=== PATIENT | male | born 1990 | race African-American/Black ===

== ENCOUNTER 2020-06-28 23:09 | Emergency (ER) | payer SELFPAY ==
[2020-06-29 00:47] LABS: Absolute Lymphocytes (CBC) 1.8 K/uL (0.7-4.9); Basophils % 0.7 % (0-1.3); Hematocrit 41.5 % (39.6-49.0); Lymphocytes % 38.1 % (15.3-44.8); MPV 9.1 fL (7.6-11.3); RBC Red Blood Cell Count 4.63 M/uL (4.33-5.43)
[2020-06-29] MEDS ORDERED: DIAZEPAM 5 MG TABLET ONE (00:47)
[2020-06-29] MEDS ORDERED: KETOROLAC 30 MG/ML INJ ONE (00:48)
[2020-06-29] MEDS ORDERED: MORPHINE 4 MG/ML SYR ONE (00:48)
[2020-06-29] MEDS ORDERED: ONDANSETRON 4 MG/2 ML VIAL ONE (00:48)
[2020-06-29] MEDS ORDERED: dexAMETHasone 10 MG/ML VIAL ONE (00:48)
[2020-06-29] MEDS ORDERED: NA CHLORIDE 0.9% 1,000 ML ONE (00:49)
[2020-06-29 01:05] LABS: Albumin 3.5 g/dL (3.4-5.0); Bilirubin Total 0.4 mg/dL (0.2-1.0); Protein, Total 7.6 g/dL (6.4-8.2)
--- NOTE | 2020-06-29 01:57 | ER ---
Nurse's Notes [facility] Name: Aris Johnson Age: 30 yrs Sex: Male : 1990 Arrival Date: 06/28/2020 Time: 23:42 Bed 8 Private MD: Diagnosis: Strain of muscle, fascia and tendon at neck level Presentation: 06/29 00:00 Chief complaint: Patient states: unsure what exactly he was doing when the pain first dm5 began. He lifts a lot at his job. Pain has been going on for about 4 days in his neck and has been getting worse. Pt also complains of pain in both knees that has been going on for over a year. He states that the steroid short he received less than a year ago has worn off. Coronavirus screen: Client denies travel out of the [place] in the last 14 days. At this time, the client does not indicate any symptoms associated with coronavirus-19. Ebola Screen: Patient negative for fever greater than or equal to 101.5 degrees Fahrenheit, and additional compatible Ebola Virus Disease symptoms Patient denies exposure to infectious person. Patient denies travel to an Ebola-affected area in the 21 days before illness onset. No symptoms or risks identified at this time. Initial Sepsis Screen: Does the patient meet any 2 criteria? No. Patient's initial sepsis screen is negative. Does the patient have a suspected source of infection? No. Patient's initial sepsis screen is negative. Risk Assessment: Do you want to hurt yourself or someone else? Patient reports no desire to harm self or others. Onset of symptoms was June 24, 2020. 00:00 Method Of Arrival: Wheelchair dm5 00:00 Acuity: KHUSHI 4 dm5 Triage Assessment: 00:03 General: Appears in no apparent distress. Behavior is calm, cooperative. Pain: dm5 Complains of pain in right knee, left knee and neck Pain currently is 10 out of 10 on a pain scale. EENT: No deficits noted. No signs and/or symptoms were reported regarding the EENT system. Neuro: No deficits noted. Cardiovascular: No deficits noted. Respiratory: No deficits noted. GI: No deficits noted. No signs and/or symptoms were reported involving the gastrointestinal system. : No deficits noted. No signs and/or symptoms were reported regarding the genitourinary system. Derm: Skin is pink, warm \T\ dry. Musculoskeletal: Reports pain in right knee, left knee and neck. Historical: - Allergies: 00:03 No Known Allergies; dm5 - Home Meds: 00:03 Keppra 500 mg Oral tab [Active]; dm5 - PMHx: 00:03 Seizures; dm5 - PSHx: 00:03 None; dm5 - Family history:: not pertinent. Screenin:00 Abuse screen: Denies threats or abuse. Nutritional screening: No deficits noted. jb4 Tuberculosis screening: No symptoms or risk factors identified. Fall Risk None identified. Assessment: 00:00 General: Appears in no apparent distress. uncomfortable, Behavior is calm, cooperative, jb4 appropriate for age. Pain: Complains of pain in right arm, left arm, right leg, left leg and neck Pain does not radiate. Pain currently is 10 out of 10 on a pain scale. Quality of pain is described as throbbing. Neuro: Level of Consciousness is awake, alert, obeys commands, Oriented to person, place, time, situation, Line Maintainer are equal bilaterally Moves all extremities. Full function Speech is normal, Facial symmetry appears normal, Pupils are PERRLA. Cardiovascular: Patient's skin is warm and dry. Respiratory: Airway is patent Respiratory effort is even, unlabored, Respiratory pattern is regular, symmetrical. GI: No signs and/or symptoms were reported involving the gastrointestinal system. : No signs and/or symptoms were reported regarding the genitourinary system. EENT: No signs and/or symptoms were reported regarding the EENT system. Derm: Skin is intact, Skin is pink, warm \T\ dry. Musculoskeletal: Circulation, motion, and sensation intact. Range of motion: intact in all extremities. 01:00 Reassessment: Patient appears in no apparent distress at this time. Patient and/or jb4 family updated on plan of care and expected duration. Pain level reassessed. Patient is alert, oriented x 3, equal unlabored respirations, skin warm/dry/pink. 02:36 Reassessment: Patient appears in no apparent distress at this time. Patient and/or jb4 family updated on plan of care and expected duration. Pain level reassessed. Patient is alert, oriented x 3, equal unlabored respirations, skin warm/dry/pink. Vital Signs: 00:00 Weight 98.88 kg; Height 5 ft. 7 in. (170.18 cm); Pain 10/10; dm5 00:45 BP 128 / 75; Pulse 72; Resp 16; Pulse Ox 100% on R/A; Pain 10/10; jb4 02:14 BP 118 / 63; Pulse 58; Resp 18; Temp 97.8(O); Pulse Ox 99% on R/A; oe 00:00 Body Mass Index 34.14 (98.88 kg, 170.18 cm) dm5 ED Course: 06/28 23:42 Patient arrived in ED. cf2 23:57 Dorian Albert MD is Attending Physician. namrata 06/29 00:00 Patient has correct armband on for positive identification. Placed in gown. Bed in low jb4 position. Call light in reach. Side rails up X 1. Pulse ox on. NIBP on. 00:02 Triage completed. dm5 00:03 Arm band placed on Patient placed in an exam room, on a stretcher. dm5 00:27 Jose Antonio Kraus, NAVNEET is Primary Nurse. jb4 00:30 Inserted saline lock: 20 gauge in left antecubital area, using aseptic technique. jb4 01:34 CT Head C Spine In Process Unspecified. EDMS 01:57 Juan Peralta MD is Referral Physician. [facility] 02:36 No provider procedures requiring assistance completed. IV discontinued, intact, jb4 bleeding controlled, No redness/swelling at site. Pressure dressing applied. Administered Medications: 00:30 Drug: Zofran (Ondansetron) 4 mg Route: IVP; Site: left antecubital; jb4 01:00 Follow up: Response: No adverse reaction jb4 00:30 Drug: Valium 5 mg Route: PO; jb4 01:00 Follow up: Response: No adverse reaction; Marked relief of symptoms; Pain is decreased jb4 00:34 Drug: morphine 4 mg Route: IVP; Site: left antecubital; jb4 01:00 Follow up: Response: No adverse reaction; Marked relief of symptoms; Pain is decreased; jb4 RASS: Alert and Calm (0) 00:35 Drug: TORadol 30 mg Route: IVP; Site: left antecubital; jb4 01:00 Follow up: Response: No adverse reaction; Marked relief of symptoms; Pain is decreased jb4 00:36 Drug: Decadron - Dexamethasone 10 mg Route: IVP; Site: left antecubital; jb4 01:00 Follow up: Response: No adverse reaction; Marked relief of symptoms; Pain is decreased jb4 01:20 Drug: NS 0.9% 1000 ml Route: IV; Rate: 1 bolus; Site: left antecubital; jb4 02:10 Follow up: Response: No adverse reaction; IV Status: Completed infusion; IV Intake: jb4 1000ml Intake: 02:10 IV: 1000ml; Total: 1000ml. jb4 Outcome: 01:56 Discharge ordered by MD. ott 02:36 Discharged to home via wheelchair, with family. jb4 02:36 Condition: stable 02:36 Discharge instructions given to patient, Instructed on discharge instructions, follow up and referral plans. medication usage, Demonstrated understanding of instructions, follow-up care, medications, Prescriptions given X 4. 02:38 Patient left the ED. jb4 Signatures: Dispatcher [employer] Sharon Birmingham, NAVNEET RN [email or web address] Dorian Albert MD MD cha Bryson, James, RN RN jb4 Jl Villanueva Celesta cf2
--- NOTE | 2020-06-29 01:57 | EDPHYS ---
Physician Documentation [facility] Name: Aris Johnson Age: 30 yrs Sex: Male : 1990 Arrival Date: 06/28/2020 Time: 23:42 Bed 8 Private MD: ED Physician Dorian Albert HPI: 06/29 00:13 This 30 yrs old Black Male presents to ER via Wheelchair with complaints of Knee Pain, namrata Neck Pain, >24Hrs Old. 00:13 The patient or guardian complains of decreased range of motion, pain, that is acute. namrata The symptoms are located at the cervical spine on the neck. Onset: The symptoms/episode began/occurred 4 day(s) ago. Context: The problem was sustained at home, The neck injury/problem resulted from from unknown cause. Associated signs and symptoms: The patient has no apparent associated signs or symptoms. The pain radiates to the left arm. Modifying factors: The symptoms are alleviated by remaining still, the symptoms are aggravated by movement. Severity of symptoms: At their worst the symptoms were mild, moderate, in the emergency department the symptoms are unchanged. The patient has not experienced similar symptoms in the past. Historical: - Allergies: 00:03 No Known Allergies; dm5 - Home Meds: 00:03 Keppra 500 mg Oral tab [Active]; dm5 - PMHx: 00:03 Seizures; dm5 - PSHx: 00:03 None; dm5 - Family history:: not pertinent. ROS: 00:13 Constitutional: Negative for fever, chills, and weight loss, Eyes: Negative for injury, namrata pain, redness, and discharge, ENT: Negative for injury, pain, and discharge, Cardiovascular: Negative for chest pain, palpitations, and edema, Respiratory: Negative for shortness of breath, cough, wheezing, and pleuritic chest pain, Abdomen/GI: Negative for abdominal pain, nausea, vomiting, diarrhea, and constipation, Back: Negative for injury and pain, : Negative for injury, bleeding, discharge, and swelling, MS/Extremity: Negative for injury and deformity, Skin: Negative for injury, rash, and discoloration, Neuro: Negative for headache, weakness, numbness, tingling, and seizure, Psych: Negative for depression, anxiety, suicide ideation, homicidal ideation, and hallucinations, Allergy/Immunology: Negative for hives, rash, and allergies, Endocrine: Negative for neck swelling, polydipsia, polyuria, polyphagia, and marked weight changes, Hematologic/Lymphatic: Negative for swollen nodes, abnormal bleeding, and unusual bruising. 00:13 Neck: Positive for mass, stiffness, tenderness, of the left arm and cervical spine and neck. Exam: 00:13 Constitutional: This is a well developed, well nourished patient who is awake, alert, namrata and in no acute distress. Head/Face: Normocephalic, atraumatic. Eyes: Pupils equal round and reactive to light, extra-ocular motions intact. Lids and lashes normal. Conjunctiva and sclera are non-icteric and not injected. Cornea within normal limits. Periorbital areas with no swelling, redness, or edema. ENT: Nares patent. No nasal discharge, no septal abnormalities noted. Tympanic membranes are normal and external auditory canals are clear. Oropharynx with no redness, swelling, or masses, exudates, or evidence of obstruction, uvula midline. Mucous membranes moist. Chest/axilla: Normal chest wall appearance and motion. Nontender with no deformity. No lesions are appreciated. Cardiovascular: Regular rate and rhythm with a normal S1 and S2. No gallops, murmurs, or rubs. Normal PMI, no JVD. No pulse deficits. Respiratory: Lungs have equal breath sounds bilaterally, clear to auscultation and percussion. No rales, rhonchi or wheezes noted. No increased work of breathing, no retractions or nasal flaring. Abdomen/GI: Soft, non-tender, with normal bowel sounds. No distension or tympany. No guarding or rebound. No evidence of tenderness throughout. Back: No spinal tenderness. No costovertebral tenderness. Full range of motion. Male : Normal genitalia with no discharge or lesions. Skin: Warm, dry with normal turgor. Normal color with no rashes, no lesions, and no evidence of cellulitis. MS/ Extremity: Pulses equal, no cyanosis. Neurovascular intact. Full, normal range of motion. Neuro: Awake and alert, GCS 15, oriented to person, place, time, and situation. Cranial nerves II-XII grossly intact. Motor strength 5/5 in all extremities. Sensory grossly intact. Cerebellar exam normal. Normal gait. Psych: Awake, alert, with orientation to person, place and time. Behavior, mood, and affect are within normal limits. 00:13 Neck: C-spine: appears grossly normal, no acute changes, Thyroid: appears normal, no acute changes, Trachea: is midline with no obvious abnormalities, no acute changes, ROM/movement: limited range of motion, that is moderate, in any direction, when rotating to the right, when rotating to the left, with flexion, with extension, Meningeal signs: are not present, Kernig's sign is negative, Brudzinski's sign is negative, Lymph nodes: no appreciated lymphadenopathy. Vital Signs: 00:00 Weight 98.88 kg; Height 5 ft. 7 in. (170.18 cm); Pain 10/10; dm5 00:45 BP 128 / 75; Pulse 72; Resp 16; Pulse Ox 100% on R/A; Pain 10/10; jb4 02:14 BP 118 / 63; Pulse 58; Resp 18; Temp 97.8(O); Pulse Ox 99% on R/A; oe 00:00 Body Mass Index 34.14 (98.88 kg, 170.18 cm) dm5 MDM: 06/28 23:57 Patient medically screened. [facility] 06/29 00:16 Differential diagnosis: bacterial meningitis, Cervical Raiculopathy cervical strain, namrata Degenerative Disc Disease Neck Contusion Simple Wedge Fracture torticollis, Unstable Vertebral Fracture Vertical Compression Injury. Data reviewed: vital signs, nurses notes, lab test result(s), radiologic studies, CT scan. Data interpreted: environmental monitoring technician: rate is 75 beats/min, rhythm is regular. Counseling: I had a detailed discussion with the patient and/or guardian regarding: the historical points, exam findings, and any diagnostic results supporting the discharge/admit diagnosis, lab results, radiology results, the need for outpatient follow up, for definitive care, a neurologist, a neurosurgeon. 06/29 00:13 Order name: CBC with Diff; Complete Time: namrata 06/29 00:13 Order name: Comprehensive Metabolic Panel; Complete Time: [facility] 06/29 00:13 Order name: CT Head C Spine [facility] 06/29 00:13 Order name: Sed Rate; Complete Time: namrata 06/29 01:55 Order name: Vital Signs: get temp please; Complete Time: 02:18 namrata Administered Medications: 00:30 Drug: Zofran (Ondansetron) 4 mg Route: IVP; Site: left antecubital; jb4 01:00 Follow up: Response: No adverse reaction jb4 00:30 Drug: Valium 5 mg Route: PO; jb4 01:00 Follow up: Response: No adverse reaction; Marked relief of symptoms; Pain is decreased jb4 00:34 Drug: morphine 4 mg Route: IVP; Site: left antecubital; jb4 01:00 Follow up: Response: No adverse reaction; Marked relief of symptoms; Pain is decreased; jb4 RASS: Alert and Calm (0) 00:35 Drug: TORadol 30 mg Route: IVP; Site: left antecubital; jb4 01:00 Follow up: Response: No adverse reaction; Marked relief of symptoms; Pain is decreased jb4 00:36 Drug: Decadron - Dexamethasone 10 mg Route: IVP; Site: left antecubital; jb4 01:00 Follow up: Response: No adverse reaction; Marked relief of symptoms; Pain is decreased jb4 01:20 Drug: NS 0.9% 1000 ml Route: IV; Rate: 1 bolus; Site: left antecubital; jb4 02:10 Follow up: Response: No adverse reaction; IV Status: Completed infusion; IV Intake: jb4 1000ml Disposition: 06/29/20 01:56 Discharged to Home. Impression: Strain of muscle, fascia and tendon at neck level. - Condition is Stable. - Discharge Instructions: Muscle Strain, Cervical Sprain, [id number]. - Prescriptions for dexamethasone 2 mg Oral tablet - take 1 tablet by ORAL route 3 times per day; 12 tablet. Ibuprofen 600 mg Oral Tablet - take 1 tablet by ORAL route every 6 hours As needed take with food; 30 tablet. Tylenol- Codeine #3 300-30 mg Oral Tablet - take 2 tablets by ORAL route every 6 hours As needed; 20 tablet. Cyclobenzaprine 5 mg Oral Tablet - take 1 tablet by ORAL route 3 times per day As needed; 15 tablet. - Medication Reconciliation Form, Thank You Letter, Antibiotic Education, Prescription Opioid Use form. - Follow up: Private Physician; When: 2 - 3 days; Reason: Recheck today's complaints, Continuance of care, Re-evaluation by your physician. Follow up: Juan Peralta MD; When: 2 - 3 days; Reason: Recheck today's complaints, Re-evaluation by your physician. - Problem is new. - Symptoms have improved. Signatures: Dispatcher [employer] Sharon Birmingham, RN RN Dorian Hernandez MD MD cha Bryson, James RN RN jb4 Corrections: (The following items were deleted from the chart) 01:57 01:56 06/29/2020 01:56 Discharged to Home. Impression: Strain of muscle, fascia and namrata tendon at neck level. Condition is Stable. Forms are Medication Reconciliation Form, Thank You Letter, Antibiotic Education, Prescription Opioid Use. Follow up: Private Physician; When: 2 - 3 days; Reason: Recheck today's complaints, Continuance of care, Re-evaluation by your physician. Problem is new. Symptoms have improved. namrata 02:38 01:57 06/29/2020 01:56 Discharged to Home. Impression: Strain of muscle, fascia and jb4 tendon at neck level. Condition is Stable. Forms are Medication Reconciliation Form, Thank You Letter, Antibiotic Education, Prescription Opioid Use. Follow up: Private Physician; When: 2 - 3 days; Reason: Recheck today's complaints, Continuance of care, Re-evaluation by your physician. Follow up: Juan Peralta; When: 2 - 3 days; Reason: Recheck today's complaints, Re-evaluation by your physician. Problem is new. Symptoms have improved. namrata
[2020-06-29 02:46] VITALS: BP 118/63; TEMP 97.8; O2SAT 99
--- NOTE | 2020-06-29 22:16 | RAD REPORT ---
EXAM DESCRIPTION: CT - [id number] - 06/29/2020 9:30 am CLINICAL HISTORY: The patient is 30 years old and is Male; PAIN TECHNIQUE: Axial computed tomography images of the head/brain and cervical spine without intravenous contrast. Sagittal and coronal reformatted images were created and reviewed. This CT exam was pe rformed using one or more of the following dose reduction techniques: automated exposure control, a djustment of the mA and/or kV according to patient size, and/or use of iterative reconstruction techn ique. COMPARISON: No relevant prior studies available. FINDINGS: BRAIN: Unremarkable. No hemorrhage. No significant white matter disease. No edema. VENTRICLES: Unremarkable. No ventriculomegaly. SKULL: No acute fracture. SINUSES: Unremarkable as visualized. No acute sinusitis. MASTOID AIR CELLS: Unremarkable as visualized. No mastoid effusion. VERTEBRAE: Reversal of the normal cervical curvature is present. The vertebral body heights and alignment are maintained. There is no acute fracture. DISCS/SPINAL CANAL/NEURAL FORAMINA: The intervertebral disc spaces are maintained. No spinal preston l stenosis. SOFT TISSUES: The soft tissues are normal. LUNG APICES: Unremarkable as visualized. IMPRESSION: 1. No acute intracranial findings. 2. Reversal of the normal cervical curvature is present. Findings may be secondary to patient pos ition versus muscle spasm. Electronically signed by: Izzy Vizcaino MD 06/29/2020 1:45 AM [employer] Due to temporary technical issues with the PACS/Fluency reporting system, reports are being signed by the in house radiologists without review as a courtesy to insure prompt reporting. The interpreting radiologist is fully responsible for the content of the report.
== END 2020-06-29 02:38 | disposition home or self-care (01) ==
LOC: ER 23:09
DX: S16.1XXA Strain of muscle, fascia and tendon at neck level, initial encounter (principal); X58.XXXA Exposure to other specified factors, initial encounter
CPT/HCPCS: 36415; 70450; 72125; 80053; 85025; 85652; 96361; 96374; 96375; 99284; J1100; J2405; J7030

== ENCOUNTER 2020-10-31 13:09 | Emergency (ER) | payer SELFPAY ==
--- OUTSIDE RECORDS SUMMARY | 2020-10-31 13:15 | XMS REPORT | Continuity of Care Document ---
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 Worker: : 1990 Requested By: EMILY Jeffries Number: [id number] Reading MD: Edd Moon M.D. MeasurementsIntervals [place] Rate: 64 P: 62PR: 181 QRS: 72QRSD: 83 T: 32QT: 384 QTc: 397 Interpretive StatementsSINUS RHYTHMPOSSIBLE LEFT ATRIAL ENLARGEMENT [-0.1mV P-WAVE IN V1/V2]INTERPRETATION BASED ON A DEFAULT AGE OF 42 YEARSElectronically Signed On 12-28-2019 6:00:39 CDT by Edd Moon M.D.SMS D-Dimer 2019-12-28 02:41:00 Test Item Value Reference Range Interpretation Comme nts D-Dimer (test code = 0.69 See_Comment H Values of quantitative D-Dimer 77855530) less than 0.40 ug/mL FEU have been reported to be associated with a low probability of deep vein thrombosis/pulm onary embolism. This test alone should not be used to rule out DVT /PE. [Automated message] The sy stem which generated this result transmitted reference range : 0.27 - 0.48 ug/mL FEU. The refere nce range was not used to interpr et this result as normal/abnormal . Lab Interpretation (test Abnormal code = 84882-1) Merged with [facility] CHEST 2 [id number] 02:26:49IMPRESSION: No acute thoracic radiographic abnormality. Dictated By: Dari Dorantes MD, 12/27/2019 11:23 PM I have reviewed the study and agree with the findings in this report. Signed By: Abhijit Donahue DO, 12/28/2019 2:26 AM Fernando, Xiang/Mammog In - 12/28/2019 2:32 AM CDT EXAMINATION: XRAY CHEST 2 VIEWS INDICATION: LLE swelling COMPARISON: None FINDINGS:TUBES and LINES: None.LUNGS: Normal lung volumes. Lungs are clear. PLEURA: No pleural effusion or pneumothorax.HEART AND MEDIASTINUM: The cardiomediastinal silhouetteisunremarkable. BONES AND SOFT TISSUES: No acute osseous lesion. Soft tissues areunremarkable.UPPER ABDOMEN: No free air under the diaphragm. IMPRESSIONIMPRESSION: No acute thoracic radiographic abnormality.Dictated By: Dari Dorantes MD, 12/27/2019 11:23 PMI have reviewed the study and agree with the findings in this report.Signed By: Abhijit Donahue DO, 12/28/2019 2:26 [facility] Metabolic Dhxzn7082-38-78 23:59:00 Test Item Value Reference Range Interpretation Comments Sodium (test code = 135 mmol/L 136-145 L 2951-2) Potassium (test code = 4.1 mmol/L 3.5-5.1 2823-3) Chloride (test code = 103 mmol/L 98-107 2075-0) CO2 (test code = 27 mmol/L 21-31 98635492) Urea Nitrogen (test 15.0 mg/dL 7-25 code = 74931399) Creatinine (test code = 1.0 mg/dL 0.7-1.3 40350359) Glucose (test code = 100 mg/dL 70-110 61132086) Calcium (test code = 9.4 mg/dL 8.6-10.3 10658820) eGFR If Africn Am (test >90 See_Comment [Au tomated message] code = 72636249) The system which generated this result transmit nelson reference range : >=90 mL/min/1.7 3 m2. The reference r whitney was not used to interpret this result as normal/abnormal . Anion Gap (test code = 5 mmol/L 5-16 41293847) Lab Interpretation Abnormal (test code = 53856-1) [facility] [id number] 23:57:00 Test Item Value Reference Range Interpretation Comments Troponin I (test code = <0.03 See_Comment [Au tomated message] 47100171) The system whic h generated this result transmitted ref erence range: <0.04 ng /mL. The reference r whitney was not used to interpret this result as normal/abnor mal. Lab Interpretation (test Normal code = 44568-2) [place] Thereson S.p.A.BNP [B-Type Natriuretic Peptide]2019-12-27 23:53:00 Test Item Value Reference Range Interpretation Comments B Natriuretic Peptide <12 See_Comment [Auto mated message] (BNP) (test code = The syste m which 01861532) generated this result transmitted ref erence range: <=100 pg /mL. The reference r whitney was not used to interpret this result as normal/abnor mal. Lab Interpretation (test Normal code = 16478-4) [facility] Hospital[facility] DOPPLER LOWER EXTREMITY VENOUS, UNILATERAL OR LIMITED 2019-12-27 23:38:44IMPRESSION: No evidence of deep venous thrombosis above the left calf. If the report is "FINALIZED" it indicates that the attending/staffradiologist has reviewed the images and agrees with the res ident'sinterpretation. Dictated By: Garcia Watt MD, 12/27/2019 9:53 PM I have reviewed the study and agree with the findings in this report. Signed By: Jose Antonio Gomez MD, 12/27/2019 11:38 PM Interface, Rad/Mammog In - 12/27/2019 11:43 PM CDT EXAM: Left Lower Extremity Venous Duplex UltrasoundINDICATION: r/o DVT COMPARISON: None TECHNIQUE:Lopez scale, color Doppler and spectral waveform analysis ofthe left lower extremity deep venous system was performed. FINDINGS: Common Femoral: Fully compressible with normal spontaneous waveforms. Proximal Greater Saphenous: Fully compressible. Femoral: Fully compressible with normal spontaneous waveforms. Normalresponse to augmentation.Proximal Deep Femoral: Normal spontaneous waveforms. Popliteal: Fully compressible with normal spontaneous waveforms. 2.2 x 0.7 cm inguinal lymph node in the left groin has normalsonographic architecture.IMPRESSIONIMPRESSION: No evidence of deep venous thrombosis above the left calf. If the report is "FINALIZED" it indicates that the attending/staffradiologist has reviewed the images and agrees with the resident'sinterpretation.Dictated By: Garcia Watt MD, 12/27/2019 9:53 PMI have reviewed the study and agree with the findings in this report.Signed By: Jose Antonio Gomez MD, 12/27/2019 11:38 [facility]/Grsh8681-83-84 23:36:00 Test Item Value Reference Range Interpretation Comments WBC (test code = 6690-2) 5.6 K/uL 4.5-12 RBC (test code = 789-8) 4.52 See_Comment L [Au tomated message] The system [employer] generated this result transmit nelson reference range : 4.60 - 6.20 M/u L. The reference r whitney was not used to interpret this result as normal/abnormal . Hemoglobin (test code = 13.3 g/dL 14-18 L 718-7) Hematocrit (test code = 42.9 % 40-54 4544-3) MCV (test code = 787-2) 94.9 fL 82-92 H MCH (test code = 785-6) 29.4 pg 27-31 MCHC (test code = 786-4) 31.0 g/dL 32-36 L RDW (test code = 42.2 fL 35.1-43.9 67086-0) Platelet (test code = 215 K/uL 150-400 777-3) Mean Platelet Volume 10.2 fL 9.4-12.4 (test code = 72838-0) Percent NRBC (test code 0.0 % = 70046193) Neutrophil (test code = 51.7 % 34-67.9 770-8) Lymphs (test code = 31.3 % 21.8-50 736-9) Monocytes (test code = 14.1 % 5.3-12 H 5905-5) Eos (test code = 713-8) 2.1 % 0.8-5 Basos (test code = 0.4 % 0.2-1.2 706-2) Immature Granulocytes 0.4 % 0-0.5 (test code = 22236762) Neutrophils (Absolute) 2.90 K/uL 1.78-5.36 (test code = 34457385) Lymphs (Absolute) (test 1.75 K/uL 1.32-3.57 code = 44099629) Monocytes(Absolute) 0.79 K/uL 0.3-0.82 (test code = 72125693) Eos (Absolute) (test 0.12 K/uL 0.04-0.54 code = 61448098) Baso (Absolute) (test 0.02 K/uL 0.01-0.08 code = 54335739) Immature Grans (Abs) 0.02 K/uL 0-0.03 (test code = 04337771) Absolute NRBC (test code 0.00 K/uL = 28727884) Lab Interpretation (test Abnormal code = 22345-4) [facility]- XR ANKLE 3+V [id number] 19:17:00 Name: SANJAY BUCHANAN [place] : 1990 Age/S: 29 / M [address] Unit #: [id number] Loc: [place] [address] Phys: Jayce Forbes MD Acct: [id number] Dis Date: Status: REG ER PHONE #: [phone] Exam Date: 07/18/20191910 FAX #: Reason: left ankle pain EXAMS: CPT: [id number] XR ANKLE 3+[place] [address] Fluoro Time: DAP (Gy m2): Air Kerma (mGy): LOCATION: T18 EXAM: LEFT ANKLE 3 VIEWS INDICATION: Left ankle pain COMPARISON: None TECHNIQ UE: AP, lateral and oblique radiographs of the left ankle FINDINGS: No fracture, dislocation or other acute bony abnormality is identified. The ankle mortise is congruent. Soft tissue swelling of the left ankle IMPRESSION: Soft tissue swelling left ankle. No acute bony abnormality. at 1917 Reported and signed by: Yg Nixon M.D.CC: Jayce Forbes MD; Kyara PIERRE PAGE 1 Signed Report Name: SANJAY BUCHANAN [place] : [birth year] Age/S: 29 / M [address] Unit #: [id number] Loc: [place] [address] Phys: Jayce Forbes MD Acct: [id number] Dis Date: Status: REG ERPHONE #: [phone] Exam Date: 07/18/20191910 FAX #: Francisca son: left ankle pain EXAMS: CPT: [id number] XR ANKLE 3+[place] [address] FluoroTime: DAP (Gy m2): Air Kerma (mGy): <Continued> Technologist: Grace Landaverde, RT(R)(CT) Trnscb Date/Time: 07/18/2019 (1916) t.SDR.JP19 Orig Print D/T: S: 07/18/2019 (1919) PAGE 2 Signed KomsriPKBUGGFLNU0133-45-96 04:46:008.1[facility] XWKXSYOVHA2015-00-21 04:46:002.1[facility] GyqecfpFQNHZTEDPV3648-65-30 04:46:000.4 [facility] VcwkgxgEVFCEVFETE1400-80-35 04:46:002.3[facility]annHEMATOLOGY 2019-03-25 04:46:001.8[facility] YujruzkFGDLYHTLHV2824-73-99 04:46:000.4[facility] OqlxnpzHNSBEWGXWB3699-94-53 04:46:000.1[facility] YiudnkhWBNSIJZRXN9431-07-55 04:46:000.0[facility] ZreomwcALQWPJDEJSQO6336-26-97 04:46:0010.6[facility] YXPUUDIFVAFE0477-00-60 04:46:09241Ecwwknta MhrmebvZPBXYMZKCSMH4590-88-71 04:46:0017[facility] VqmejthVCPXVQHDQQFY8645-23-97 04:46:001.10[facility] WMNIBGTXDSLL3617-70-24 04:46:94367Vestbddx UpenjzbLUUKRLPVTZAZ8679-64-82 04:46:003.6[facility] EvfzsasPIMKMZCEVRUN3202-24-05 04:46:39698Lzezjdlm [place] EXDYTLMGDKIL8566-36-45 04:46:0027[facility] ApnplgiPJVECAAIHQYF5224-06-94 04:46:00 9.4[facility] BgqrzegRAVHNSEMJLYZ1859-03-32 04:46:69644Sbxvvhqw HermannHEMATOLOGY 2019-03-25 04:46:004.6[facility] VukwufxCCBTGQNQGX5056-14-86 04:46:004.58[facility] IbulhwhWDELPEOTYA2819-47-86 04:46:0014.2[facility] UevkwkzHMBTVHONHC4444-76-00 04:46:0042.6[facility] VjozkvdFGOBSEAAWC9542-95-78 04:46:0093.0[facility] GWUGGUSHPI6794-87-28 04:46:00 Test Item Value Reference Range Interpretation Comments MCH (test code = MCH) 31.1 pg 27.0-31.0 [facility] PigzgzfOXXANBESLL5104-92-98 04:46:0033.4[facility]annHEMATOLOGY 2019-03-25 04:46:0012.5[facility] RnwawtdKTUDGWKDEQ8393-17-35 04:46:45762Thxvvctj FhjrkcsKBXVZLKMIH6703-49-13 04:46:008.2[facility] FowabdxHEXNNGVXOC6505-51-41 04:46:0050.3[facility] XjjtnohXGIQMNNJOZ9099-47-15 04:46:0039.1[facility]- XR KNEE 3 V IY3055-29-37 12:54:00 Name: SANJAY BUCHANAN [facility] : 1990 Age/S: 28 / M [address] Unit #: [id number] Loc: [place] [address] Phys: Kendy Kilpatrick MD Acct: [id number] Dis Date: Status: PRE ER PHONE #: [phone] Exam Date: 07/17/2018 1240 FAX #: Reason: right knee pain EXAMS: CPT: [id number] XR KNEE 3 [place] RT [address] Fluoro Time: DAP (Gy m2): Air Kerma (mGy): HISTORY: Male, 28 years of age with right knee pain Location code: R16 EXAM: RIGHT KNEE, 3 VIEWS COMPARISON: None FINDINGS: There is a small suprapatellar joint effusion. No significant arthropathy. No acute fracture, dislocation, osteolytic or osteoblastic lesion. IMPRESSION: Small joint effusion. No acute bony abnormalities. at 1254 Reported and signed by: Faby Rapp MD CC: Kendy Kilpatrick MD; Sandrita Monroy PA PAGE 1 Signed Report Name: SANJAY BUCHANAN : 1990 Age/S: 28 / M [address] [address] [id number] Loc: [place] [address] Phys: Kendy Kilpatrick MD Acct: [id number] Dis Date: Status:PRE ER PHONE #: [phone] Exam Date: 07/17/2018 1240 FAX #: Reason: right knee pain EXAMS: CPT: [id number] XR KNEE 3 [place] RT [address] Fluoro Time: DAP (Gy m2): Air Kerma (mGy): <Continued> Technologist: Ja Luo RT(R)(MR) Trnscb Date/Time: 07/17/2018 (1254) tJOSE ECLW Orig Print D/T: S: 07/17/2018 (1257) PAGE 2 Signed ReportDRUG SCREEN 2016-11-15 16:46:00Positive *ABN*(11/15/16 11:46 AM)[facility]ann[facility] SCREEN 2016-11-15 16:46:00Positive *ABN*(11/15/16 11:46 AM)[facility]ann[facility] SCREEN 2016-11-15 16:46:00Negative *NA*(11/15/16 11:46 AM)[facility]ann[facility] SCREEN 2016-11-15 16:46:00See Note (11/15/16 11:46 AM)[facility]ann[facility] SCREEN 2016-11-15 16:46:00Negative *NA*(11/15/16 11:46 AM)[facility]ann[facility] SCREEN 2016-11-15 16:46:00Negative *NA*(11/15/16 11:46 AM)[facility]ann[facility] SCREEN 2016-11-15 16:46:00Negative *NA*(11/15/16 11:46 AM)[facility]ann[facility] SCREEN 2016-11-15 16:46:00Negative *NA*(11/15/16 11:46 AM)[facility]ann[facility] AND VCWPT2495-95-34 16:46:00Negative (11/15/16 11:46 AM)[facility] PMWQB5911-83-33 16:46:00Negative *NA*(11/15/16 11:46 AM)[facility] AVGIE1962-25-50 16:46:00Negative (11/15/16 11:46 AM)[facility] BLZJL5240-71-27 16:46:00Clear (11/15/16 11:46 AM)[facility] STOOL 2016-11-15 16:46:001.030[facility] AND TMXOG8767-79-83 16:46:005.0 [facility] XLSJH1437-92-59 16:46:0027[facility] ZAGTM8856-80-29 16:46:00Small *ABN*(11/15/16 11:46 AM)[facility] ZXZMO0171-99-25 16:46:004[facility] HermannCHEM EEVDV8339-71-55 15:53:001.26 [facility]annCHEM OUISO0740-77-42 15:53:0016[facility]annCHEM PANEL 2016-11-15 15:53:0087[facility] HermannCHEM FJNTT2980-00-60 15:53:0092[facility]annCHEM ZNUAL1294-42-67 15:53:0031[facility]annCHEM LFROW2555-60-71 15:53:007.4[facility]annCHEM PZRVH7693-78-83 15:53:008.9[facility]annCHEM GMRPY4144-50-64 15:53:004.2[facility]annCHEM BYIRN0186-27-69 15:53:15466 [facility]annCHEM CQNID6869-03-29 15:53:95082Klgyrmcp HermannCHEM PANEL 2016-11-15 15:53:0063[facility] HermannCHEM ZTNFV6646-06-12 15:53:001.5[facility] HermannCHEM LALWV2826-27-54 15:53:0092[facility] HermannCHEM GLKLP6768-44-16 15:53:0043[facility] HermannCHEM VOGDP8743-53-17 15:53:003.8[facility] HermannCHEM OEUQI6135-34-31 15:53:001.1[facility]annCHEM EXPVK7295-07-59 15:53:003.6 [facility]annCHEM UFCTA2787-13-31 15:53:0013[facility] HermannCHEM PANEL 2016-11-15 15:53:008.2[facility] HermannCHEM DHBFZ5856-14-74 15:53:0080[facility] AymmogoSVGPUPXITN4560-52-72 15:53:001.3[facility] QgjogacGOMAIVXSGR6749-18-67 15:53:0011.0[facility] FoyjhtnJRWJDHECCF2953-93-28 15:53:0050.8[facility] OSPBOOABQI9544-37-41 15:53:0036.6[facility] SrlgsmiDWXFDRQKLJ6274-98-74 15:53:00 0.0[facility] UovvgfcLCKAJGNTDH8859-84-50 15:53:000.0[facility]annHEMATOLOGY 2016-11-15 15:53:000.4[facility] WrryrrvSZHFNXUCJF5886-42-07 15:53:001.2[facility] NennzhwULRIHHGAXZ0522-43-65 15:53:000.3[facility] NjztdsfDVEWXKPLZV7144-45-20 15:53:001.7[facility] LzdlrycPDGTUIKVZZ8541-65-81 15:53:004.53[facility] RCDVRNGOBT1350-12-26 15:53:003.3[facility] ArswgytXLIBOZIDOA0408-14-05 15:53:00 14.1[facility] QefvddwSBFUSCVWDV5584-57-85 15:53:008.3[facility]annHEMATOLOGY 2016-11-15 15:53:0012.6[facility] YnvdyraCLMQZCVMXV5033-59-42 15:53:29676Lhgpdoen UjwydckGUYRSGLXRH9701-08-10 15:53:0032.7[facility] EqdyzzcWUIJDVBVEO8611-24-25 15:53:00 Test Item Value Reference Range Interpretation Comments MCH (test code = MCH) 31.0 pg 27.0-31.0 [facility] FydkenhHPYWPEJUPM2657-06-95 15:53:0094.8[facility]annHEMATOLOGY 2016-11-15 15:53:0043.0[facility] LlykvpmFAJOCAWZZRJG8472-03-91 23:07:0010.0 [facility] QsxxcwpSZJABGBOBZPZ9524-03-20 23:07:003.7[facility] HermannELECTROLYTES 2015-05-10 23:07:001.1[facility] IbpwlafMZIGFMVXTBMU3030-55-93 23:07:0013[facility] XuwlwduFMRTHSJLREQQ7303-21-41 23:07:0094[facility] EzdtjzlCXFHQVWATRWO3107-35-64 23:07:004.0[facility] WrovrhiIRPEYFRYQXUK3435-62-50 23:07:001.25[facility] PEVRECVJBKCS4803-85-54 23:07:73723Mfblkcgp KmodsicSPAJGQUAQZSC2765-63-58 23:07:22637Pzsublzj RcuzloqKUGNICGHTVHQ0986-86-20 23:07:0027[facility] OGTPGNAUQUME8722-15-10 23:07:008.7[facility] VugmpfaGUQWMEKJMVUS1314-28-46 23:07:001.0[facility] OhbmszlOWYSHJAEKMYQ9255-73-40 23:07:007.7[facility] CPCVJMABXXIA7061-81-21 23:07:0023[facility] GcyxamsRPXDUKLLTWRU3882-71-96 23:07:00 24[facility] AavktjyIDYVLVNLUUBP3096-03-87 23:07:004.0[facility] HermannELECTROLYTES 2015-05-10 23:07:70019Iexvdtod VuwdjorAWDBGUCACHWF5045-06-66 23:07:0085[facility] DtlkzmnMFWJDVQBLFAQ1150-51-00 23:07:0016[facility] LjczfcdZDJQLDLEWX6037-24-79 23:07:0092.2[facility] TsxyfgxAMQGZHALXJ2567-63-72 23:07:008.6[facility] MUPPZDZMQF4271-36-54 23:07:008.5[facility] AayrntaVEKLZEXEIL8657-77-78 23:07:57477 [facility] KmhytbgDXQTQMEIUH7270-34-06 23:07:0043.8[facility] HermannHEMATOLOGY 2015-05-10 23:07:0014.4[facility] IlbnmczPSPKDTBEJP9971-88-87 23:07:004.75[facility] DjkjmhaCOIRQEGIXC9814-33-54 23:07:0012.6[facility] TyopxkzWYEOKMQGZV5848-84-35 23:07:0032.9[facility] LafxqomAFJZPOJGZS9637-15-12 23:07:00 Test Item Value Reference Range Interpretation Comments MCH (test code = MCH) 30.4 pg 27.0-31.0 [facility] IvwykyfHEPSAKEKGA1367-79-51 23:07:000.2[facility]annHEMATOLOGY 2015-05-10 23:07:008.7[facility] YhtqfyvNSDFOLIDXG5062-44-69 23:07:006.8[facility] OkcqrcmTHRQYQVCAG5922-39-43 23:07:000.4[facility] BokhvbrRWFSYGQBGI8452-43-52 23:07:001.0[facility] VonsxgoBDVIXKHXIH1968-55-55 23:07:000.8[facility] TNORSDOYOL5634-75-10 23:07:0011.7[facility] VjxinylHBZUQODAAE6753-51-75 23:07:00 79.0[facility] HermannMOLECULAR TPSMQSUQMY7991-15-20 23:07:00Negative *NA*(05/10/15 5:07 PM)[facility] HermannMOLECULAR SEMEIBPSVX7390-38-13 23:07:00 Positive *ABN*(05/10/15 5:07 PM)[facility] HermannMOLECULAR ZIQGYALNJE9607-57-67 23:07:00Urine *NA*(05/10/15 5:07 PM)[facility]ann[facility] AND XHRQP4097-36-66 23:07:00Cloudy *ABN*(05/10/15 5:07 PM)[facility]ann[facility] AND NOQIF0102-98-59 23:07:00Yellow *NA*(05/10/15 5:07 PM)[facility]ann[facility] AND WSNOU7533-79-93 23:07:00Positive *ABN*(05/10/15 5:07 PM)[facility] STOOL 2015-05-10 23:07:00Small 1*ABN*(05/10/15 5:07 PM)[facility] STOOL 2015-05-10 23:07:00Large *ABN*(05/10/15 5:07 PM)[facility] STOOL 2015-05-10 23:07:000.2[facility]annUR[facility] AND YELPB6266-82-30 23:07:00Negative (05/10/15 5:07 PM)[facility] AND AVLII8385-97-52 23:07:00Small *ABN*(05/10/15 5:07 PM)[facility]ann[facility] AND YOPIV0217-27-73 23:07:00 >=1.030 *ABN*(05/10/15 5:07 PM)[facility]ann[facility] AND ZKHUW6786-42-47 23:07:00 Test Item Value Reference Range Interpretation Comments UA pH (test code = UA pH) 6.0 1 5.0-8.0 [facility]
[2020-10-31] MEDS ORDERED: KETOROLAC 30 MG/ML INJ ONE (14:26)
--- NOTE | 2020-10-31 14:41 | RAD REPORT ---
EXAM DESCRIPTION: RAD - Shoulder Left 2 View - 10/31/2020 2:24 pm CLINICAL HISTORY: PAIN FINDINGS: Small bony osteophytes are present emanating from the acromion process. No acute fracture or dislocation. Moderate dextroscoliosis of the thoracic spine.
--- NOTE | 2020-10-31 14:42 | ER ---
Nurse's Notes [facility] Name: Aris Johnson Age: 30 yrs Sex: Male : 1990 Arrival Date: 10/31/2020 Time: 13:14 Bed 12 Private MD: Diagnosis: Pain in left shoulder Presentation: 10/31 13:42 Chief complaint: Patient states: Left shoulder pain, worse with movement, denies jl7 trauma. Coronavirus screen: Client denies travel out of the [place] in the last 14 days. At this time, the client does not indicate any symptoms associated with coronavirus-19. Ebola Screen: No symptoms or risks identified at this time. Initial Sepsis Screen: Does the patient meet any 2 criteria? No. Patient's initial sepsis screen is negative. Does the patient have a suspected source of infection? No. Patient's initial sepsis screen is negative. Risk Assessment: Do you want to hurt yourself or someone else? Patient reports no desire to harm self or others. Onset of symptoms is unknown. 13:42 Method Of Arrival: Ambulatory 7 13:42 Acuity: KHUSHI 4 jl7 Triage Assessment: 13:43 General: Appears in no apparent distress. uncomfortable, Behavior is calm, cooperative, jl7 appropriate for age. Pain: Complains of pain in anterior aspect of left shoulder and posterior aspect of left shoulder Pain currently is 8 out of 10 on a pain scale. Is continuous. Neuro: Level of Consciousness is awake, alert, obeys commands, Oriented to person, place, time, situation. Cardiovascular: Patient's skin is warm and dry. Respiratory: Airway is patent Respiratory effort is even, unlabored, Respiratory pattern is regular, symmetrical. Derm: Skin is pink, warm \T\ dry. Musculoskeletal: Range of motion: limited in left shoulder. Historical: - Allergies: 13:43 No Known Allergies; jl7 - Home Meds: 13:43 Keppra 500 mg Oral tab [Active]; jl7 - PMHx: 13:43 Seizures; jl7 - PSHx: 13:43 None; jl7 - Immunization history:: Adult Immunizations unknown. - Social history:: Smoking status: Patient reports the use of cigarette tobacco products. Screenin:00 Abuse screen: Denies threats or abuse. Denies injuries from another. Nutritional jl7 screening: No deficits noted. Tuberculosis screening: No symptoms or risk factors identified. Fall Risk None identified. Vital Signs: 13:42 BP 139 / 85; Pulse 70; Resp 15; Temp 97.8; Pulse Ox 100% ; Weight 97.52 kg; Height 5 jl7 ft. 8 in. (172.72 cm); Pain 8/10; 13:42 Body Mass Index 32.69 (97.52 kg, 172.72 cm) jl7 ED Course: 13:14 Patient arrived in ED. as 13:16 Dorian Olivo PA is PHCP. cp 13:16 Kwame Joy MD is Attending Physician. cp 13:43 Triage completed. jl7 13:43 Arm band placed on right wrist. jl7 13:44 Kody Sanchez RN is Primary Nurse. jl7 14:00 Patient has correct armband on for positive identification. Call light in reach. jl7 14:24 XRAY Shoulder LEFT 2 view In Process Unspecified. EDMS 14:41 Jorje Lim MD is Referral Physician. cp 15:12 No provider procedures requiring assistance completed. Patient did not have IV access ss during this emergency room visit. Sling applied to left arm. Administered Medications: 14:08 Drug: TORadol (ketorolac) 30 mg Route: IM; Site: right deltoid; ss 15:12 Follow up: Response: No adverse reaction; Pain is decreased ss Outcome: 14:42 Discharge ordered by MD. cp 15:12 Discharged to home ambulatory. ss 15:12 Condition: good 15:12 Discharge instructions given to patient, family, Instructed on discharge instructions, follow up and referral plans. Demonstrated understanding of instructions, follow-up care. 15:12 Patient left the ED. ss 15:12 Instructed on medication usage, Demonstrated understanding of medications, jl7 Prescriptions given X 3. Signatures: Dispatcher [employer] Laura Tipton Shelby, RN RN Dorian Olivo PA PA cp Kody Sanchez, NAVNEET RN jl7
--- NOTE | 2020-10-31 14:42 | EDPHYS ---
Physician Documentation [facility] Name: Aris Johnson Age: 30 yrs Sex: Male : 1990 Arrival Date: 10/31/2020 Time: 13:14 Bed 12 Private MD: ED Physician Kwame Joy HPI: 10/31 14:05 This 30 yrs old Black Male presents to ER via Ambulatory with complaints of Shoulder cp Pain. 14:05 The patient or guardian complains of pain, that is acute. left shoulder. Context: cp resulted from an unknown reason, The patient reports no obvious deformity. painful ROM. 14:05 Onset: The symptoms/episode began/occurred 3 day(s) ago. cp 14:05 Modifying factors: The symptoms are aggravated by lifting arm. Associated signs and cp symptoms: Pertinent negatives: chest pain, neck pain, Numbness in left shoulder and left arm shortness of breath, Weakness in left hand and left arm. Severity of symptoms: in the emergency department the symptoms are unchanged, despite home interventions. Historical: - Allergies: 13:43 No Known Allergies; jl7 - Home Meds: 13:43 Keppra 500 mg Oral tab [Active]; jl7 - PMHx: 13:43 Seizures; jl7 - PSHx: 13:43 None; jl7 - Immunization history:: Adult Immunizations unknown. - Social history:: Smoking status: Patient reports the use of cigarette tobacco products. ROS: 14:10 MS/extremity: Positive for pain, tenderness, painful ROM, Negative for injury or acute cp deformity, paresthesias, tingling. 14:10 Constitutional: Negative for body aches, chills, fever. cp 14:10 Cardiovascular: Negative for chest pain, palpitations. Exam: 14:15 Constitutional: The patient appears in no acute distress, alert, awake, cp non-diaphoretic, well developed, well nourished. 14:15 Head/Face: Normocephalic, atraumatic. cp 14:15 Neck: C-spine: vertebral tenderness, is not appreciated, crepitus, is not appreciated, ROM/movement: is normal, is supple, without pain, no range of motions limitations. 14:15 Chest/axilla: Inspection: normal, Palpation: is normal, no crepitus, no tenderness. 14:15 Cardiovascular: Rate: normal, Rhythm: regular. 14:15 Respiratory: the patient does not display signs of respiratory distress, Respirations: normal, no use of accessory muscles, no retractions, labored breathing, is not present, Breath sounds: are clear throughout, no decreased breath sounds. 14:15 Abdomen/GI: Exam negative for discomfort, distension, guarding, Inspection: abdomen appears normal. 14:15 Back: pain, that is mild, of the left trapezius and left scapular area. 14:15 Musculoskeletal/extremity: Extremities: grossly normal except: noted in the left lateral shoulder: pain, tenderness, ROM: limited passive range of motion due to pain, in the left shoulder, Pulses: noted to be 2+ in the left radial artery, the left hand and left arm Sensation intact. 14:15 Skin: no rash present. Vital Signs: 13:42 BP 139 / 85; Pulse 70; Resp 15; Temp 97.8; Pulse Ox 100% ; Weight 97.52 kg; Height 5 jl7 ft. 8 in. (172.72 cm); Pain 8/10; 13:42 Body Mass Index 32.69 (97.52 kg, 172.72 cm) jl7 MDM: 13:46 Patient medically screened. cp 14:15 Differential diagnosis: Anterior dislocation with fracture, Anterior dislocation cp without fracture, Posterior dislocation with fracture, Posterior dislocation without fracture, tendonitis, rotator cuff injury. 14:41 Data reviewed: vital signs, nurses notes, radiologic studies, plain films. 10/31 13:59 Order name: XRAY Shoulder LEFT 2 view; Complete Time: 14:43 10/31 14:43 Interpretation: Report reviewed. 10/31 14:43 Order name: Sling; Complete Time: 15:12 cp Administered Medications: 14:08 Drug: TORadol (ketorolac) 30 mg Route: IM; Site: right deltoid; ss 15:12 Follow up: Response: No adverse reaction; Pain is decreased ss Disposition: 15:15 Chart complete. cp 16:48 Co-signature as Attending Physician, Kwame Joy MD I agree with the assessment and kdr plan of care. Disposition: 10/31/20 14:42 Discharged to Home. Impression: Pain in left shoulder. - Condition is Stable. - Discharge Instructions: Shoulder Pain, Shoulder Range of Motion Exercises. - Prescriptions for Lidoderm 5 % Topical adhesive patch,medicated - apply 1 patch by TRANSDERMAL route once daily; 1 box. Cyclobenzaprine 10 mg Oral Tablet - take 1 tablet by ORAL route every 8 hours As needed; 20 tablet. Diclofenac Sodium 75 mg Oral Tablet, Delayed Release (E.C.) - take 1 tablet by ORAL route 2 times per day; 20 tablet. - Medication Reconciliation Form, Thank You Letter, Antibiotic Education, Prescription Opioid Use form. - Follow up: Jorje Lim MD; When: 1 week; Reason: pain continues. - Problem is new. - Symptoms have improved. Signatures: Dispatcher [employer] EDMS Kwame Joy MD MD [facility] Leesa Odom RN RN ss Dorian Olivo PA PA Kody Lopez RN RN jl7 Corrections: (The following items were deleted from the chart) 15:12 14:42 10/31/2020 14:42 Discharged to Home. Impression: Pain in left shoulder. Condition ss is Stable. Forms are Medication Reconciliation Form, Thank You Letter, Antibiotic Education, Prescription Opioid Use. Follow up: Jorje Lim; When: 1 week; Reason: pain continues. Problem is new. Symptoms have improved. cp 11/01 01:33 06 14:00 Differential diagnosis: Anterior dislocation with fracture, Anterior cp dislocation without fracture, Posterior dislocation with fracture, Posterior dislocation without fracture, tendonitis, rotator cuff injury cp
[2020-10-31 15:20] VITALS: BP 139/85; TEMP 97.8; O2SAT 100
== END 2020-10-31 15:12 | disposition home or self-care (01) ==
LOC: ER 13:09
DX: M25.512 Pain in left shoulder (principal); G40.802 Other epilepsy, not intractable, without status epilepticus
CPT/HCPCS: 96372; 99284

== ENCOUNTER 2021-01-03 07:48 | Emergency (ER) | payer SELFPAY ==
--- OUTSIDE RECORDS SUMMARY | 2021-01-03 07:52 | XMS REPORT | Continuity of Care Document ---
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 HEMATOLOGY 2019-03-01 2.1 [facility] 6 Abhijeet 04:46:00 HEMATOLOGY 2019-03-01 0.4 [facility] 6 [place] 04:46:00 HEMATOLOGY 2019-03-01 2.3 [facility] 6 Abhijeet 04:46:00 HEMATOLOGY 2019-03-01 1.8 [facility] 6 Abh[place]et 04:46:00 HEMATOLOGY 2019-03-01 0.4 [facility] 6 Abhijeet 04:46:00 HEMATOLOGY 2019-03-01 0.1 [facility] 6 [place] 04:46:00 HEMATOLOGY 2019-03-01 0.0 [facility] 6 [place] 04:46:00 ELECTROLYTES 2019-03-01 10.6 [facility] 6 Abh[place]et 04:46:00 ELECTROLYTES 2019-03-01 102 [facility] 6 [place] 04:46:00 ELECTROLYTES 2019-03-01 17 [facility] 6 [place] 04:46:00 ELECTROLYTES 2019-03-01 1.10 [facility] 6 [place] 04:46:00 ELECTROLYTES 2019-03-01 138 [facility] 6 Abhijeet 04:46:00 ELECTROLYTES 2019-03-01 3.6 [facility] 6 [place] 04:46:00 ELECTROLYTES 2019-03-01 104 [facility] 6 Abhijeet 04:46:00 ELECTROLYTES 2019-03-01 27 [facility] 6 [place] 04:46:00 ELECTROLYTES 2019-03-01 9.4 [facility] 6 [place]hijeet 04:46:00 ELECTROLYTES 2019-03-01 107 [facility] 6 [place] 04:46:00 HEMATOLOGY 2019-03-01 4.6 [facility] 6 [place]hijeet 04:46:00 HEMATOLOGY 2019-03-01 4.58 [facility] 6 [place] 04:46:00 HEMATOLOGY 2019-03-01 14.2 [facility] 6 [place] 04:46:00 HEMATOLOGY 2019-03-01 42.6 [facility] 6 [place]et 04:46:00 HEMATOLOGY 2019-03-01 93.0 [facility] 6 Abhijeet 04:46:00 HEMATOLOGY 2019-03-25 04:46:00 Test Item Value Reference Range Interpretation Comme nts MCH (test code = MCH) 31.1 pg 27.0-31.0 [facility] BbjkphwJNHMSVBLPL2591-13-93 04:46:0033.4[facility]annHEMATOLOGY 2019-03-25 04:46:0012.5[facility] KmckljkCSSZLTVION2488-17-25 04:46:52032Awfrchmc HkpahgdKDJTXFUWTF9620-26-48 04:46:008.2[facility] CsijkcqMUHBNFWRZS7818-52-08 04:46:0050.3[facility]- XR KNEE 3 V LK4339-85-11 12:54:00 Name: SANJAY BUCHANAN [facility] : 1990 Age/S: 28 / M [address] Unit #: [id number] Loc: [place] [address] Phys: Kendy Kilpatrick MD Acct: [id number] Dis Date: Status: PRE ER PHONE #: [phone] Exam Date: 07/17/2018 1240 FAX #: Reason: right knee pain EXAMS: CPT: [id number] XR KNEE 3 V RT [address]872 Fluoro Time: DAP (Gy m2): Air Kerma [...] Rapp MD CC: Kendy Kilpatrick MD; Sandrita PIERRE PAGE 1 Signed Report Name: SANJAY BUCHANAN [facility] : 1990 Age/S: 28 / M [address] [id number] Loc: [place] [address] Phys: Kendy Kilpatrick MD Acct: [id number] Dis Date: Status:PRE ER PHONE #: [phone] Exam Date: 07/17/2018 1240 FAX #: Reason: right knee pain EXAMS: CPT: [id number] XR KNEE [address] [place] [address] Fluoro Time: DAP (Gy m2): Air Kerma (mGy): <Continued> Technologist: Ja Luo RT(R)(MR) Trnscb Date/Time: 07/17/2018 (1182) [email or web address] Orig Print D/T: S: 07/17/2018 (0901) PAGE 2 Signed ReportDRUG WFWNJP0400-29-15 16:46:00 Positive *ABN*(11/15/16 11:46 AM)[facility] WQWDEM5087-69-61 16:46:00 Positive *ABN*(11/15/16 11:46 AM)[facility] UFCOLA2795-22-28 16:46:00 Negative *NA*(11/15/16 11:46 AM)[facility] MEKHAZ7163-91-85 16:46:00See Note (11/15/16 11:46 AM)[facility] KHWFLO3051-70-80 16:46:00Negative *NA*(11/15/16 11:46 AM)[facility] ZDWKRO7048-32-23 16:46:00Negative *NA*(11/15/16 11:46 AM)[facility] XVJNGY7079-55-37 16:46:00Negative *NA*(11/15/16 11:46 AM)[facility] XUQXNY1725-23-57 16:46:00Negative *NA*(11/15/16 11:46 AM)[facility] AND WLQLI0372-91-95 16:46:00Negative (11/15/16 11:46 AM)[facility] NYNAE1917-26-62 16:46:00Negative *NA*(11/15/16 11:46 AM)[facility] MRFHH8965-00-13 16:46:00Negative (11/15/16 11:46 AM)[facility] HFCBE9913-21-22 16:46:00Clear (11/15/16 11:46 AM)[facility] RKJRI5021-32-58 16:46:001.030 [facility] CMDET0376-03-09 16:46:005.0[facility] YCNJX5357-43-75 16:46:0027[facility] LOCTB5703-75-09 16:46:00 Small *ABN*(11/15/16 11:46 AM)[facility] LHZMP6943-24-35 16:46:004 [facility]annCHEM YWWRI5693-74-32 15:53:001.26[facility] HermannCHEM PANEL 2016-11-15 15:53:0016[facility] HermannCHEM TTUME5893-71-70 15:53:0087[facility]annCHEM GOVKR2259-98-84 15:53:0092[facility] HermannCHEM QWTBT2426-53-25 15:53:0031[facility] HermannCHEM QQLJW9920-89-40 15:53:007.4[facility] HermannCHEM YKYEX6313-05-71 15:53:008.9[facility]annCHEM OVMEQ0074-98-37 15:53:004.2 [facility]annCHE[facility] IPNLR3947-34-68 15:53:69413Qgqvjqls HermannCHEM PANEL 2016-11-15 15:53:95865Cqoxoyyq HermannCHEM LEUHC8319-21-15 15:53:0063[facility] HermannCHEM XSPCJ0491-36-94 15:53:001.5[facility] HermannCHEM WYBEW5264-28-92 15:53:0092[facility] HermannCHEM KPBTW0127-46-57 15:53:0043[facility] HermannCHEM EDHCV6344-58-85 15:53:003.8[facility] HermannCHEM LEVEV6036-62-22 15:53:001.1 [facility]annCHEM BNBUF2104-32-87 15:53:003.6[facility] HermannCHEM PANEL 2016-11-15 15:53:0013[facility] HermannCHEM FYDSL7543-75-01 15:53:008.2[facility] HermannCHEM JNVWG4854-23-95 15:53:0080[facility] FdffvffXHJHVXVLOO1835-57-00 15:53:001.3[facility] JmwktnfXFXKGSCDEF1829-22-66 15:53:0011.0[facility]hijeet RVYOZCBEFY8845-36-87 15:53:0050.8[facility] AyirfjuTYCGQFZPPE5200-04-41 15:53:00 36.6[facility] EzsbgvvLKRWIBKZJH8102-43-41 15:53:000.0[facility] HermannHEMATOLOGY 2016-11-15 15:53:000.0[facility] LfquchoATXEUNIILF5492-09-23 15:53:000.4[facility] EjwrqatKUZXIIUMFP5186-87-14 15:53:001.2[facility] HqwhqhwWWDINIZTNV1575-84-06 15:53:000.3[facility] HngnhjxGBONQPCECN7730-71-13 15:53:001.7[facility] VARCHOTHOI9471-47-42 15:53:004.53[facility] CalvwupDTYNZBNOPK1042-17-09 15:53:00 3.3[facility] EhvfidsPQWBUSYBRR7081-40-01 15:53:0014.1[facility] HermannHEMATOLOGY 2016-11-15 15:53:008.3[facility] BheevpaAKBYALXXFF7529-59-54 15:53:0012.6[facility] KobdrbxKFQUALQRMU9412-30-20 15:53:68005Bmkssjal DddwtbsSFTOHAYMHU7367-77-22 15:53:0032.7[facility] TwjtnntTPVCZQYCUC1807-98-59 15:53:00 Test Item Value Reference Range Interpretation Comments MCH (test code = MCH) 31.0 pg 27.0-31.0 [facility] EugadagFDBOGOLURB2073-47-96 15:53:0094.8[facility] HermannHEMATOLOGY 2016-11-15 15:53:0043.0[facility] VxmmnjwRAOYQWPAXRSG5691-82-77 23:07:0010.0 Memorial TqgdcbiVORHURDQDEBW4861-11-64 23:07:003.7[facility] HermannELECTROLYTES 2015-05-10 23:07:001.1[facility] ZwfeuvaERCKVAMJFEQD1648-12-25 23:07:0013Mem[facility] GdwsdjzYQFMIFZQPYWZ3541-16-54 23:07:0094[facility] PhavdhuUEFAVFTDLDYB8693-51-89 23:07:004.0[facility] BysjcsvQWOOIJLRVBTS8521-32-83 23:07:001.25[facility] GPEVBPYGCSQY8207-31-16 23:07:70355Jkhckcqs FftfmufYJOFKCUGNNFN1981-19-03 23:07:45668Fwlaifre WkimnkbVVIAPXMLXJPI6770-88-46 23:07:0027[facility] AEBTGONAJILA1555-41-48 23:07:008.7[facility] OrcgbqhEPDWVNKNTGDQ3933-27-31 23:07:001.0[facility]orial PbnbzddVGJTTBTNGSIS3276-24-67 23:07:007.7[facility] HTJNKQIXTUJS7410-58-81 23:07:0023[facility] WnrmjhsPFTZXCOGNNTM7200-98-42 23:07:00 24[facility] DddreedYNOMKOKOYZLI0826-19-20 23:07:004.0[facility] HermannELECTROLYTES 2015-05-10 23:07:70345Mtqvyhqk MqkejilRSNKHROPOLIP3537-88-67 23:07:0085[facility] IdjufknUPSTRJGVDHZW1443-46-74 23:07:0016[facility] NtrcloaBGRREKDUIJ8547-89-18 23:07:0092.2[facility] LjbpzviTFOAZNIEGF4959-87-16 23:07:008.6[facility] Abhijeet LFSNTLTJOX4054-98-43 23:07:008.5[facility] JpaurvbGSJAYGDSYH1798-50-46 23:07:46345 Memorial ZorfmnnWVXOZULCOI7683-81-68 23:07:0043.8[facility] HermannHEMATOLOGY 2015-05-10 23:07:0014.4[facility] YirypitYYURHZBLKI6890-67-58 23:07:004.75[facility] YssbjhpQRSZIFYWUV6334-55-16 23:07:0012.6[facility] QthqosaERHXLKPHSM2684-86-13 23:07:0032.9[facility] BtsnvpvXSLZBDYXJZ4519-31-28 23:07:00 Test Item Value Reference Range Interpretation Comments MCH (test code = MCH) 30.4 pg 27.0-31.0 [facility] ObeyrydJXPWYYMUJE4457-89-94 23:07:000.2[facility] HermannHEMATOLOGY 2015-05-10 23:07:008.7[facility] RaojobwXQJRBOYYEK5668-72-93 23:07:006.8[facility] EkhkimyQAKOICMLZR1560-10-41 23:07:000.4[facility] KuktqemJQZJRGMPEK5800-66-33 23:07:001.0[facility] IjuineaBZEIIXCAYQ3218-32-44 23:07:000.8[facility] Abhijeet MLZWDJVJAN0786-36-10 23:07:0011.7[facility] HgsuiydRMVEGKAIEE6863-35-20 23:07:00 79.0[facility] HermannMOLECULAR OWDFVYCKLE1576-88-09 23:07:00Negative *NA*(05/10/15 5:07 PM)[facility] HermannMOLECULAR ONIXKGMPXG5589-18-95 23:07:00 Positive *ABN*(05/10/15 5:07 PM)[facility] HermannMOLECULAR VXTOBQHFFP4197-95-94 23:07:00Urine *NA*(05/10/15 5:07 PM)[facility] AND NUYBS0581-12-63 23:07:00Cloudy *ABN*(05/10/15 5:07 PM)[facility] AND EJZSF7469-23-25 23:07:00Yellow *NA*(05/10/15 5:07 PM)[facility] AND GBDSR1339-14-85 23:07:00Positive *ABN*(05/10/15 5:07 PM)[facility]ann[facility] AND STOOL 2015-05-10 23:07:00Small 1*ABN*(05/10/15 5:07 PM)[facility] STOOL 2015-05-10 23:07:00Large *ABN*(05/10/15 5:07 PM)[facility] STOOL 2015-05-10 23:07:000.2[facility]ann[facility] AND AOGUK0878-95-77 23:07:00Negative (05/10/15 5:07 PM)[facility] AND UBLCR2197-02-55 23:07:00Small *ABN*(05/10/15 5:07 PM)[facility]ann[facility] AND DFONN7766-54-31 23:07:00 >=1.030 *ABN*(05/10/15 5:07 PM)[facility]ann[facility] AND EQMNX2432-08-56 23:07:00 Test Item Value Reference Range Interpretation Comments UA pH (test code = UA pH) 6.0 1 5.0-8.0 [facility] Abhijeet
--- NOTE | 2021-01-03 10:07 | RAD REPORT ---
EXAM DESCRIPTION: RAD - Foot Right 3 View - 01/03/2021 9:51 am CLINICAL HISTORY: Right foot pain FINDINGS: No fracture or dislocation is seen. Hallux valgus deformity.
--- NOTE | 2021-01-03 10:29 | ER ---
Nurse's Notes [facility] Name: Aris Johnson Age: 30 yrs Sex: Male : 1990 Arrival Date: 01/03/2021 Time: 07:48 Bed 10 Private MD: Diagnosis: Crushing injury of foot;Abrasion of lower leg-Right foot at the [facility] Presentation: 01/03 08:11 Chief complaint: Patient states: Injured Rt foot something fell on it. Coronavirus da3 screen: Client denies travel out of the [place] in the last 14 days. At this time, the client does not indicate any symptoms associated with coronavirus-19. Ebola Screen: No symptoms or risks identified at this time. Initial Sepsis Screen: Does the patient meet any 2 criteria? No. Patient's initial sepsis screen is negative. Risk Assessment: Do you want to hurt yourself or someone else? Patient reports no desire to harm self or others. 08:11 Method Of Arrival: Ambulatory da3 08:11 Acuity: KHUSHI 4 da3 10:47 Initial Sepsis Screen: Does the patient meet any 2 criteria? Does the patient have a ca1 suspected source of infection? No. Patient's initial sepsis screen is negative. Onset of symptoms was January 03, 2021. Triage Assessment: 08:15 General: Appears in no apparent distress. Musculoskeletal: Reports pain in right foot da3 since yesturday. Pain is 8 out of 10 on a pain scale. Injury Description: Crush injury sustained to right foot. Historical: - Allergies: 10:44 No Known Allergies; ca1 - PMHx: 10:44 Seizures; ca1 - Immunization history:: Last tetanus immunization: unknown. - Social history:: Smoking status: Patient reports the use of cigarette tobacco products, smokes one-half pack cigarettes per day. - Coronavirus screen:: The patient has NOT traveled to [place] in the past 14 days. The patient HAS HAD contact with known and/or suspected case of coronavirus. Screenin:44 Abuse screen: Denies threats or abuse. Denies injuries from another. Nutritional ca1 screening: No deficits noted. Tuberculosis screening: No symptoms or risk factors identified. Fall Risk None identified. Assessment: 10:43 General: Appears in no apparent distress. comfortable, Behavior is calm, cooperative, ca1 appropriate for age. Pain: Complains of pain in right foot Pain currently is 6 out of 10 on a pain scale. Neuro: Level of Consciousness is awake, alert, obeys commands, Oriented to person, place, time, situation. Derm: Skin is intact, is healthy with good turgor, Skin is pink, warm \T\ dry. Injury Description: Laceration sustained to dorsum of right foot was sustained 1 day ago. Vital Signs: 08:11 BP 140 / 91; Pulse 68; Resp 18; da3 08:11 BP 140 / 90; Pulse 75; Resp 18; Temp 98; Pulse Ox 99% ; Weight 92.99 kg; da3 08:17 BP 140 / 91; Pulse 69; Resp 18; Temp 98(TE); da3 ED Course: 07:48 Patient arrived in ED. as 08:06 Kwame Joy MD is Attending Physician. kdr 08:14 Triage completed. da3 09:48 Foot Right 3 View XRAY In Process Unspecified. EDMS 10:44 Patient has correct armband on for positive identification. ca1 10:47 Arm band placed on. ca1 10:47 No provider procedures requiring assistance completed. Patient did not have IV access ca1 during this emergency room visit. 10:48 Wound care: to laceration located on dorsum of right foot was cleaned with Betadine, ca1 dressed with Neosporin, 4X4s, Patient tolerated well. Administered Medications: 10:43 Drug: Tetanus-Diphtheria Toxoid Adult 0.5 ml {Roof Fixer: Teabox. Exp: ca1 08/29/2022. Lot #: [id number]. } Route: IM; Site: right deltoid; 10:53 Follow up: Response: No adverse reaction ca1 Outcome: 10:29 Discharge ordered by . kdr 10:51 Discharged to home ambulatory. ca1 10:51 Condition: stable 10:51 Discharge instructions given to patient, Instructed on discharge instructions, follow up and referral plans. medication usage, wound care, Demonstrated understanding of instructions, follow-up care, medications, wound care, Prescriptions given X 1. 10:51 Patient left the ED. ca1 Signatures: Dispatcher [employer] EDMS Kwame Joy MD MD kdr Martinez, Amelia as Calderon, Audri RN RN aa5 Arielle Kiran RN RN ca1 Jamel Suarez RN RN da3 Corrections: (The following items were deleted from the chart) 19:42 10:18 Louise Garcia RN is Primary Nurse. aa5 aa5
--- NOTE | 2021-01-03 10:29 | EDPHYS ---
Physician Documentation [facility] Name: Aris Johnson Age: 30 yrs Sex: Male : 1990 Arrival Date: 01/03/2021 Time: 07:48 Bed 10 Private MD: ED Physician Kwame Joy HPI: 01/03 08:16 This 30 yrs old Black Male presents to ER via Ambulatory with complaints of Crush kdr Injury To Foot, r/o covid. 08:16 The patient presents with an abrasion, a contusion, decreased range of motion, an kdr injury, pain, that is acute. The complaints affect the right foot. Context: The problem was sustained at work, at an unknown location, resulted from a heavy object falling, Patient was demoing some cabinetry and countertops. A portion of one of the marble tops fractured and dropped on his right foot., Mechanism of Injury: the patient can partially bear weight, the patient is able to ambulate, with mild difficulty. Onset: The symptoms/episode began/occurred suddenly, yesterday. Modifying factors: The symptoms are alleviated by nothing, the symptoms are aggravated by weight bearing, movement. Associated signs and symptoms: Pertinent positives: Patient has a minor abrasion to the dorsum of the foot above the first MCT. Severity of symptoms: At their worst the symptoms were mild, in the emergency department the symptoms are unchanged. The patient has not experienced similar symptoms in the past. The patient has not recently seen a physician. Historical: - Allergies: 10:44 No Known Allergies; ca1 - PMHx: 10:44 Seizures; ca1 - Immunization history:: Last tetanus immunization: unknown. - Social history:: Smoking status: Patient reports the use of cigarette tobacco products, smokes one-half pack cigarettes per day. - Coronavirus screen:: The patient has NOT traveled to [place] in the past 14 days. The patient HAS HAD contact with known and/or suspected case of coronavirus. ROS: 08:16 Constitutional: Negative for fever, chills, and weight loss, Eyes: Negative for injury, kdr pain, redness, and discharge, Neck: Negative for injury, pain, and swelling, Cardiovascular: Negative for chest pain, palpitations, and edema, Respiratory: Negative for shortness of breath, cough, wheezing, and pleuritic chest pain, Abdomen/GI: Negative for abdominal pain, nausea, vomiting, diarrhea, and constipation, Back: Negative for injury and pain, : Negative for injury, bleeding, discharge, and swelling, Skin: Negative for injury, rash, and discoloration, Neuro: Negative for headache, weakness, numbness, tingling, and seizure activity. Psych: Negative for depression, anxiety, suicide ideation, homicidal ideation, and hallucinations, Allergy/Immunology: Negative for hives, rash, and allergies, Endocrine: Negative for neck swelling, polydipsia, polyuria, polyphagia, and marked weight changes, Hematologic/Lymphatic: Negative for swollen nodes, abnormal bleeding, and unusual bruising. 08:16 MS/extremity: Positive for injury or acute deformity, abrasion, decreased range of motion, pain, swelling, tenderness. Exam: 08:16 Musculoskeletal/extremity: Extremities: grossly normal except: noted in the right first kdr toe: decreased ROM, laceration, pain, swelling, tenderness. 10:31 Constitutional: This is a well developed, well nourished patient who is awake, alert, kdr and in no acute distress. Head/Face: Normocephalic, atraumatic. Vital Signs: 08:11 BP 140 / 91; Pulse 68; Resp 18; da3 08:11 BP 140 / 90; Pulse 75; Resp 18; Temp 98; Pulse Ox 99% ; Weight 92.99 kg; da3 08:17 BP 140 / 91; Pulse 69; Resp 18; Temp 98(TE); da3 MDM: 08:16 Data reviewed: vital signs, nurses notes, radiologic studies. Counseling: I had a kdr detailed discussion with the patient and/or guardian regarding: the historical points, exam findings, and any diagnostic results supporting the discharge/admit diagnosis, radiology results, the need for outpatient follow up. 10:29 Patient medically screened. kdr 01/03 08:15 Order name: Foot Right 3 View XRAY; Complete Time: 10:27 kdr 01/03 08:15 Order name: Misc. Order: Clean and dress wound on right foot; Complete Time: 10:43 kdr Administered Medications: 10:43 Drug: Tetanus-Diphtheria Toxoid Adult 0.5 ml {Cell Reliner: Busuu. Exp: ca1 08/29/2022. Lot #: [id number]. } Route: IM; Site: right deltoid; 10:53 Follow up: Response: No adverse reaction ca1 Disposition Summary: 01/03/21 10:29 Discharge Ordered Location: Home kdr Problem: new kdr Symptoms: have improved kdr Condition: Stable kdr Diagnosis - Crushing injury of foot kdr - Abrasion of lower leg - Right foot at the MCT kdr Followup: kdr - With: Private Physician - When: 2 - 3 days - Reason: If symptoms return, Further diagnostic work-up, Recheck today's complaints, Continuance of care, Re-evaluation by your physician Discharge Instructions: - Discharge Summary Sheet kdr - Crush Injury of the Foot, Bxqy-qj-Xozd kdr Forms: - Medication Reconciliation Form kdr - Thank You Letter kdr - Work release form ca1 Prescriptions: - Ibuprofen 800 mg Oral Tablet - take 1 tablet by ORAL route every 8 hours As needed take with food; 15 tablet; kdr Refills: 0, Product Selection Permitted Signatures: Dispatcher [employer] Kwame Galan MD MD kdr Arielle Kiran RN RN ca1 Jamel Suarez RN RN da3
[2021-01-03] MEDS ORDERED: TETANUS & DIPHTHERIA TOX,ADULT 0.5 ML VIAL ONE (11:01)
[2021-01-03 11:15] VITALS: TEMP 98; O2SAT 99
[2021-01-03 11:17] VITALS: BP 140/91
== END 2021-01-03 10:51 | disposition home or self-care (01) ==
LOC: ER 07:48
DX: S90.811A Abrasion, right foot, initial encounter (principal); X58.XXXA Exposure to other specified factors, initial encounter; Y93.89 Activity, other specified; Y92.89 Other specified places as the place of occurrence of the external cause; Y99.8 Other external cause status; Z23 Encounter for immunization; F17.210 Nicotine dependence, cigarettes, uncomplicated
CPT/HCPCS: 90471; 90714; 99284

== ENCOUNTER 2021-04-25 07:35 | Emergency (ER) | payer BC, SELFPAY ==
--- OUTSIDE RECORDS SUMMARY | 2021-04-25 07:38 | XMS REPORT | Continuity of Care Document ---
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 [address] Phys: Kendy Kilpatrick MD Acct: [id number] Dis Date: Status: PRE ER PHONE #: [phone] Exam Date: 07/17/2018 1240 FAX #: Reason: right knee pain EXAMS: CPT: [id number] XR KNEE 3 [place] [address] Fluoro Time: DAP (Gy m2): Air Kerma [...] signed by: Faby Rapp MD CC: Kendy Kilpartick MD; Sandrita PIERRE PAGE 1 Signed Report Name: SANJAY BUCHANAN [facility] : 1990 Age/S: 28 / M [address]: [id number] Loc: [place] [address] Phys: Kendy Kilpatrick MD Acct: [id number] Dis Date: Status:PRE ER PHONE #: [phone] Exam Date: 07/17/2018 1240 FAX #: Reason: right knee pain EXAMS: CPT: [id number] XR KNEE 3 [place] [address] Fluoro Time: DAP (Gy m2): Air Kerma (mGy): <Continued> Technologist: Ja Luo RT(R)(MR) Trnscb Date/Time: 07/17/2018 (1255) t.[email or web address].CLW Orig Print D/T: S: 07/17/2018 (1257) PAGE 2 Signed ReportDRUG ZMQDET4751-99-41 16:46:00 Positive *ABN*(11/15/16 11:46 AM)[facility] BQQCLB1488-42-88 16:46:00 Positive *ABN*(11/15/16 11:46 AM)[facility]ann[facility] GAJSQU0076-53-59 16:46:00 Negative *NA*(11/15/16 11:46 AM)[facility] ZVPJWY6094-35-58 16:46:00See Note (11/15/16 11:46 AM)[facility]ann[facility] WRNAOG8464-93-57 16:46:00Negative *NA*(11/15/16 11:46 AM)[facility] EMLTBD8971-48-25 16:46:00Negative *NA*(11/15/16 11:46 AM)[facility] ATGABC9956-42-71 16:46:00Negative *NA*(11/15/16 11:46 AM)[facility] JBHMLW2842-27-20 16:46:00Negative *NA*(11/15/16 11:46 AM)[facility] AND VOCDN4493-46-16 16:46:00Negative (11/15/16 11:46 AM)[facility] KHDFD5514-38-17 16:46:00Negative *NA*(11/15/16 11:46 AM)[facility] UIOYP1327-38-45 16:46:00Negative (11/15/16 11:46 AM)[facility] SZSWN2558-86-51 16:46:00Clear (11/15/16 11:46 AM)[facility] YIWGV9392-85-49 16:46:001.030 [facility] TRLJM5222-37-14 16:46:005.0[facility] AND KMGLF3107-99-98 16:46:0027[facility] JEHPB8616-90-93 16:46:00 Small *ABN*(11/15/16 11:46 AM)[facility] UECWY4435-00-31 16:46:004 [facility]annCHEM SUVPX6019-31-41 15:53:001.26[facility] HermannCHEM PANEL 2016-11-15 15:53:0016[facility]annCHEM SEPJJ2532-96-63 15:53:0087[facility]annCHEM ATIVH6408-35-55 15:53:0092[facility]annCHEM SXZXE4318-75-60 15:53:0031[facility]annCHEM DUKWJ2077-64-35 15:53:007.4[facility]annCHEM HRTQS3701-57-88 15:53:008.9[facility]annCHEM SSLAI0595-45-98 15:53:004.2 [facility]annCHE[facility] UCZNT6112-36-82 15:53:14196Ednzwekn HermannCHEM PANEL 2016-11-15 15:53:90048Xnbsixux HermannCHEM XHIVB9872-13-92 15:53:0063[facility] HermannCHEM BCAYV0933-75-42 15:53:001.5[facility]annCHEM AJSTX5060-18-33 15:53:0092[facility]annCHEM TWPLT4595-00-00 15:53:0043[facility]annCHEM HPVVS5704-17-10 15:53:003.8[facility]annCHEM QAVND5224-43-73 15:53:001.1 [facility]annCHE[facility] ENHTW9163-57-62 15:53:003.6[facility] HermannCHEM PANEL 2016-11-15 15:53:0013[facility] HermannCHEM EOADJ3490-03-21 15:53:008.2[facility] HermannCHEM XZIGQ8452-18-33 15:53:0080[facility] QyglkedAKIIUTDQWK3282-78-67 15:53:001.3[facility] GhjjlojKRMZNVZHBC7214-82-14 15:53:0011.0[facility] UBXRCYGYCD6196-18-37 15:53:0050.8[facility] SkuwgfpAWPKTGGSVE6495-52-38 15:53:00 36.6[facility] CammrupQRAJDZSACU9153-59-76 15:53:000.0[facility]annHEMATOLOGY 2016-11-15 15:53:000.0[facility] CxoyjlfXEVPBBEQUJ0380-66-35 15:53:000.4[facility] PhtylzuTMVXJLDMFE2893-27-59 15:53:001.2[facility] HmruzmhMLWRDJXBRN8680-33-57 15:53:000.3[facility] SgqqrntNZBLLAAJIF4384-41-89 15:53:001.7[facility] [place] GMBMEFITJF0169-87-07 15:53:004.53[facility] QduexwoIUDYOYNJCI5846-89-58 15:53:00 3.3[facility] TisjofxXMZIHSKSSH1435-08-41 15:53:0014.1[facility]annHEMATOLOGY 2016-11-15 15:53:008.3[facility] VgmekeeZCNPSDYBCO9974-55-72 15:53:0012.6[facility] RnzgwnuTLBIRWGHSD9650-18-34 15:53:79852Lkirprfk TmnuxnyZDGLIHIFBC1041-03-53 15:53:0032.7[facility] NtzuqlpULXRYDDJCH1284-79-19 15:53:00 Test Item Value Reference Range Interpretation Comments MCH (test code = MCH) 31.0 pg 27.0-31.0 [facility] MxkzubzWOJAPWWMSM8118-60-53 15:53:0094.8[facility]annHEMATOLOGY 2016-11-15 15:53:0043.0[facility] WcmcjjkNCDUUVWDVQWD7912-17-93 23:07:0010.0 [facility] YsgbpnnXAOBIWRPRGOE8422-55-97 23:07:003.7[facility] HermannELECTROLYTES 2015-05-10 23:07:001.1[facility] WybzhkaVBKEJDRIPRTX6514-49-35 23:07:0013[facility] CppqddfGLIOTMXSCVLV0092-05-28 23:07:0094[facility] PwucgolVMOZFXKLZPJX6894-33-64 23:07:004.0[facility] DhehnnhEGHLVFSYWQFG7224-58-72 23:07:001.25[facility] [place] ZIKMVDOZZSSW7070-14-11 23:07:36260Secsapkd CordmzhZIGOQKRVVLLI5528-27-73 23:07:88747Oizndmvs SbxmhhsZBIVXPJOOMCH3343-59-45 23:07:0027[facility] [place] LMWKQVWFXVZE2972-26-41 23:07:008.7[facility] TyxaqknSGBESGQJJYKJ5275-46-11 23:07:001.0[facility] SrdmpupERVRYCCMJKEO2067-66-99 23:07:007.7[facility] [place] GPNGBSKQPFEQ6172-06-61 23:07:0023[facility] RjpimbxZYTVENJDZWTH9700-97-00 23:07:00 24[facility] IcnfazeXYJUNPRBTMET4065-50-18 23:07:004.0[facility] HermannELECTROLYTES 2015-05-10 23:07:20515Ffssoauc QetbxfrFLOWRKSHKXVI5693-09-51 23:07:0085[facility] NzcqlqgRFLETGVKIISA4407-53-86 23:07:0016[facility] DggixjoCGVFBBUAJX6669-98-19 23:07:0092.2[facility] QchqblwUETTKTADGY8652-32-70 23:07:008.6[facility] [place] YWGYDZREYJ3039-45-23 23:07:008.5[facility] GlzadfwQWVZTBLTKT2071-41-14 23:07:53856 [facility] PiqybsnSIPRXZHPYN7306-06-92 23:07:0043.8[facility] HermannHEMATOLOGY 2015-05-10 23:07:0014.4[facility] VndclsmYIMWYUDHXL4555-36-05 23:07:004.75[facility] FslhxdrDBGPTQSLXO9727-24-97 23:07:0012.6[facility] XfvctmdKBLCKNLFNQ6302-64-04 23:07:0032.9[facility] GzldfszXCKBDYTAGU0417-33-51 23:07:00 Test Item Value Reference Range Interpretation Comments MCH (test code = MCH) 30.4 pg 27.0-31.0 [facility] OsgusmeDCKMVNSSGE4439-52-34 23:07:000.2[facility] HermannHEMATOLOGY 2015-05-10 23:07:008.7[facility] WbtoxxuFKLJLOZOZX0374-94-07 23:07:006.8[facility] JriamfvRXABPDJDUE3229-78-11 23:07:000.4[facility] OptgvceKYPQTMWMCG2392-40-39 23:07:001.0[facility] XhvtsskFYGXQVVFZU9450-84-88 23:07:000.8[facility] [place] CJPUFJPUZO7985-89-63 23:07:0011.7[facility] MwfiewrLJFCHIVECZ2246-74-53 23:07:00 79.0[facility] HermannMOLECULAR TJTLCWOLJZ8847-39-31 23:07:00Negative *NA*(05/10/15 5:07 PM)[facility] HermannMOLECULAR CVDAVFSIUR4815-28-01 23:07:00 Positive *ABN*(05/10/15 5:07 PM)[facility] HermannMOLECULAR JRNULIMCRX1944-19-57 23:07:00Urine *NA*(05/10/15 5:07 PM)[facility]ann[facility] AND ODUAH8012-28-88 23:07:00Cloudy *ABN*(05/10/15 5:07 PM)[facility] AND MZHOG4877-06-88 23:07:00Yellow *NA*(05/10/15 5:07 PM)[facility] AND JUAFD7647-99-56 23:07:00Positive *ABN*(05/10/15 5:07 PM)[facility] AND STOOL 2015-05-10 23:07:00Small 1*ABN*(05/10/15 5:07 PM)[facility] STOOL 2015-05-10 23:07:00Large *ABN*(05/10/15 5:07 PM)[facility] STOOL 2015-05-10 23:07:000.2[facility] AND CWBRJ5115-66-02 23:07:00Negative (05/10/15 5:07 PM)[facility] AND KSTUR1836-06-13 23:07:00Small *ABN*(05/10/15 5:07 PM)[facility] AND UZNQE6656-60-40 23:07:00 >=1.030 *ABN*(05/10/15 5:07 PM)[facility] AND IWZUN6868-60-80 23:07:00 Test Item Value Reference Range Interpretation Comments UA pH (test code = UA pH) 6.0 1 5.0-8.0 [facility]
[2021-04-25] MEDS ORDERED: KETOROLAC 30 MG/ML INJ ONE (08:06)
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
[2021-04-25 09:26] VITALS: TEMP 98.7; O2SAT 100
[2021-04-25 09:27] VITALS: BP 130/72
--- NOTE | 2021-04-25 09:56 | RAD REPORT ---
EXAM DESCRIPTION: RAD - Shoulder Left 2 View - 04/25/2021 8:14 am CLINICAL HISTORY: Left shoulder pain FINDINGS: No fracture or dislocation is seen. Spur extends superiorly from the acromion process.
== END 2021-04-25 09:20 | disposition home or self-care (01) ==
LOC: ER 07:35
DX: M25.512 Pain in left shoulder (principal); G40.909 Epilepsy, unspecified, not intractable, without status epilepticus; F17.210 Nicotine dependence, cigarettes, uncomplicated
CPT/HCPCS: 96372; 99283

== ENCOUNTER 2021-05-07 17:14 | Emergency (ER) | payer SELFPAY ==
--- OUTSIDE RECORDS SUMMARY | 2021-05-07 17:18 | XMS REPORT | Continuity of Care Document ---
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 15:53:0092[facility]annCHE[facility] STNGW4806-96-12 15:53:0031[facility]annCHE[facility] VBYRU8290-72-52 15:53:007.4 [facility] CETOH9623-34-13 15:53:008.9[facility]ann[facility] PANEL 2016-11-15 15:53:004.2[facility]annCHE[facility] LVQDW8242-73-41 15:53:53932Acvzkyhs HermannCHEM FKARN8308-38-28 15:53:40992Azsbzrjw HermannCHEM OZPLR5702-37-86 15:53:0063[facility]annCHE[facility] PNUZH1160-58-17 15:53:001.5[facility]annCHE[facility] EZTCD9079-11-43 15:53:0092[facility]ann[facility] CVJDQ7757-08-00 15:53:0043 [facility] BAJRP1115-15-80 15:53:003.8[facility]annCHE[facility] PANEL 2016-11-15 15:53:001.1[facility]annCHE[facility] MGMTD4738-68-40 15:53:003.6[facility]annCHE[facility] JQVSZ7559-60-07 15:53:0013[facility]annCHE[facility] LCWHF6581-51-38 15:53:008.2[facility]annCHE[facility] OFTHJ0179-92-25 15:53:0080[facility] Abhijeet UBULEHGVOU1803-88-41 15:53:001.3[facility] RdxniddGCCKATFJLE1233-50-55 15:53:00 11.0[facility] YkfmlrtWHAPVIWISV2525-46-04 15:53:0050.8[facility]annHEMATOLOGY 2016-11-15 15:53:0036.6[facility] IlaiydmXIAMZAPEZM3160-98-23 15:53:000.0[facility] RcmyhlrPRNOZNVLNW4629-66-24 15:53:000.0[facility] HryzqsvOPQUEGFQJT0547-79-38 15:53:000.4[facility] FjebojfULODPWQNQR9893-92-48 15:53:001.2[facility] YPPQYIWEID0858-88-76 15:53:000.3[facility] UkojlmfHTJNWYCQFO3109-22-22 15:53:001.7 [facility] NlrgkwfPTFWQFSWZP6320-83-29 15:53:004.53[facility]annHEMATOLOGY 2016-11-15 15:53:003.3[facility] XivtiicRDXFWXPWOF6683-83-09 15:53:0014.1[facility] GqswujsRVHNQIOWJX8147-93-65 15:53:008.3[facility] CvuyeosOIZWGGNJJQ9999-76-81 15:53:0012.6[facility] YrfjvxtYRHQKNZLFA5810-56-29 15:53:14752Xmqzibta Abhijeet YNEQSUOMAN2916-91-85 15:53:0032.7[facility] KuohsgzHIXUQMIBNN0840-24-24 15:53:00 Test Item Value Reference Range Interpretation Comments MCH (test code = MCH) 31.0 pg 27.0-31.0 [facility] MvlqmemUAQCGOEYJT3209-01-04 15:53:0094.8[facility]annHEMATOLOGY 2016-11-15 15:53:0043.0[facility] EjwkrffQEHDATJHKWMQ7582-75-43 23:07:0010.0 [facility] WuixqntELTZYKHWDVCD7138-19-35 23:07:003.7[facility] HermannELECTROLYTES 2015-05-10 23:07:001.1[facility] EtjyqnjEOHUBYNVYMOD7956-54-57 23:07:0013[facility] HtuzikaIXYXHOMGVEAJ3522-94-68 23:07:0094[facility] VbugfqzMWQUJUESLUDG3954-13-73 23:07:004.0[facility] IjvmuopAQHSXIQFNEZO9783-18-13 23:07:001.25[facility] YWHMNBUDOPAQ6522-76-47 23:07:94007Dvhuxucl XygthjoNOQPFYDZALYL2976-06-53 23:07:46936Ztehmtqz PbqdktgBJVABLWCGDAK4903-03-55 23:07:0027[facility] AJTOXHSGLUMA5367-84-73 23:07:008.7[facility] UnhtbcjRLLKIYPPDKQN7461-06-93 23:07:001.0[facility] FmypdqnTRJDMLQBJXHK0081-61-91 23:07:007.7[facility] VZFDJEJFCQHW4760-12-47 23:07:0023[facility] AocywurQWLVCTOTOLGV4887-40-00 23:07:00 24[facility] UhuiuyzZENKSUOOZEVG8749-84-53 23:07:004.0[facility] HermannELECTROLYTES 2015-05-10 23:07:21123Wqffjuzg IcvbevuJLDCMRRQRWWL9377-28-31 23:07:0085[facility] MusmginRPEZMYFSGKHN3960-50-33 23:07:0016[facility] VlhznqmIYAPWAUEOW6574-78-16 23:07:0092.2[facility] ApvfogyYRFLGQONND8992-14-06 23:07:008.6[facility] NYLGNFHCBR7293-38-12 23:07:008.5[facility] JuqkxnoEHLKHDOSFS2603-00-51 23:07:55861 [facility] TljdbagXHGYJQJQUB6278-10-40 23:07:0043.8[facility]annHEMATOLOGY 2015-05-10 23:07:0014.4[facility] VraszapVIBMLURIAL6025-65-64 23:07:004.75[facility] PiociqpLRHJLLAFYH5268-01-86 23:07:0012.6[facility] FrfiughRLGRLXWXXS5427-21-95 23:07:0032.9[facility] YkbyccgXGYWPNRRPN2054-01-27 23:07:00 Test Item Value Reference Range Interpretation Comments MCH (test code = MCH) 30.4 pg 27.0-31.0 [facility] KpuhnrlILRGJHWPNU4964-52-88 23:07:000.2[facility]annHEMATOLOGY 2015-05-10 23:07:008.7[facility] IxlfohfBGPSBDCZPD7227-72-08 23:07:006.8[facility] MxqhopzEWSNDFAJGM1570-73-41 23:07:000.4[facility] JmikuwxFSVRGRXTOM8759-93-49 23:07:001.0[facility] QcdodvfHMCYKDMIIJ0420-61-04 23:07:000.8[facility] TYMAGKWHCT2074-64-71 23:07:0011.7[facility] EsfvygwSAWJXGHIOW8514-08-44 23:07:00 79.0[facility] HermannMOLECULAR HUENHMDJLW3215-21-59 23:07:00Negative *NA*(05/10/15 5:07 PM)[facility]annMOLECULAR QUTWRUYMLG2493-60-23 23:07:00 Positive *ABN*(05/10/15 5:07 PM)[facility]annMOLECULAR BSGBDVMUJB6898-48-21 23:07:00Urine *NA*(05/10/15 5:07 PM)[facility] JKGWK1815-84-98 23:07:00Cloudy *ABN*(05/10/15 5:07 PM)[facility] TCNOQ5264-77-16 23:07:00Yellow *NA*(05/10/15 5:07 PM)[facility] JBXBV6521-99-40 23:07:00Positive *ABN*(05/10/15 5:07 PM)[facility] STOOL 2015-05-10 23:07:00Small 1*ABN*(05/10/15 5:07 PM)[facility] STOOL 2015-05-10 23:07:00Large *ABN*(05/10/15 5:07 PM)[facility] STOOL 2015-05-10 23:07:000.2[facility] NEGSX5921-42-05 23:07:00Negative (05/10/15 5:07 PM)[facility] BNNNB2546-04-51 23:07:00Small *ABN*(05/10/15 5:07 PM)[facility] DEZLE7942-73-56 23:07:00 >=1.030 *ABN*(05/10/15 5:07 PM)[facility] KWRUZ2759-59-87 23:07:00 Test Item Value Reference Range Interpretation Comments UA pH (test code = UA pH) 6.0 1 5.0-8.0 [facility]
[2021-05-07 17:42] LABS: Absolute Lymphocytes (CBC) 0.9 K/uL (0.7-4.9); Basophils % 0.5 % (0-1.3); Hematocrit 45.1 % (39.6-49.0); Lymphocytes % 20.8 % (15.3-44.8); MPV 8.3 fL (7.6-11.3); RBC Red Blood Cell Count 5.06 M/uL (4.33-5.43)
[2021-05-07 17:57] LABS: Potassium 3.2 mmol/L (3.5-5.1)
[2021-05-07] MEDS ORDERED: levETIRAcetam 1,000 MG in NA CHLORIDE 0.9% 100 ML IV ONE (18:00)
--- NOTE | 2021-05-07 18:12 | RAD REPORT ---
EXAM DESCRIPTION: CT - Head Brain Wo Cont - 05/07/2021 6:03 pm CLINICAL HISTORY: SEIZURE COMPARISON: No comparisons TECHNIQUE: All CT scans are performed using dose optimization technique as appropriate and may inclu de automated exposure control or mA/KV adjustment according to patient size. FINDINGS: No intracranial hemorrhage, hydrocephalus or extra-axial fluid collection.No areas of brai n edema or evidence of midline shift. The paranasal sinuses and mastoids are clear. The calvarium is intact. IMPRESSION: No acute intracranial abnormality.
[2021-05-07] MEDS ORDERED: NA CHLORIDE 0.9% 500 ML ONE (18:28)
[2021-05-07] MEDS ORDERED: POTASSIUM CL SA 10 MEQ TAB PO ONE (18:28)
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
[2021-05-07 18:59] VITALS: TEMP 98.6
[2021-05-07 19:03] VITALS: BP 141/86; O2SAT 97
== END 2021-05-07 18:51 | disposition home or self-care (01) ==
LOC: ER 17:14
DX: G40.89 Other seizures (principal); F17.210 Nicotine dependence, cigarettes, uncomplicated
CPT/HCPCS: 36415; 70450; 80048; 85025; 96365; 99284; J1953; J7040